=== PATIENT | male | born 1985 | race Caucasian/White ===

== ENCOUNTER → 2020-06-19 17:26 | Outpatient (BNVA) | payer BC, SELFPAY | PROVIDERS: Visit Provider Nurse Practitioner | DX: Z11.59 Encounter for screening for other viral diseases (principal) | CPT/HCPCS: 87635 ==

== ENCOUNTER → 2021-09-18 09:22 | Outpatient (BNVA) | payer BC, SELFPAY | PROVIDERS: PCP Registered Nurse; Visit Provider Registered Nurse | DX: Z11.52 Encounter for screening for COVID-19 (principal); R68.89 Other general symptoms and signs; Z20.822 Contact with and (suspected) exposure to COVID-19 | CPT/HCPCS: 87400; 87635 ==

== ENCOUNTER 2022-12-17 12:00 | Outpatient (CLI) | payer OTHER, SELFPAY | END 2022-12-17 12:01 | disposition home or self-care (01) | LOC: SLEEP 12-18 15:21 | PROVIDERS: PCP Registered Nurse; Visit Provider Registered Nurse | DX: G47.10 Hypersomnia, unspecified (principal); R06.83 Snoring; G47.33 Obstructive sleep apnea (adult) (pediatric) | CPT/HCPCS: G0399 ==